=== PATIENT | female | born 1935 | race Caucasian/White ===

== ENCOUNTER 2018-05-11 10:46 | Day surgery (SDC) | payer OTHER ==
[2018-05-10 13:40] VITALS: BMI 30.8
[2018-05-11] MEDS ORDERED: ACETAMINOPHEN 1000 MG/100 ML VIAL (NON FORMULARY) IVPB ONE (12:02)
--- NOTE | 2018-05-11 12:02 | HP ---
History & Physical Update - History History: No Change - Physical Physical: No Change - Assessment Assessment: No Change - Plan Plan: No Change
[2018-05-11] MEDS ORDERED: IBUPROFEN 800 MG/8 ML IJ IVPB SCH (12:15)
[2018-05-11] MEDS ORDERED: DEXTROSE 5%-0.45% SALINE 1,000 ML IV SCH (12:15)
[2018-05-11] MEDS ORDERED: DEXAMETHASONE SOD PHOSPHATE 4 MG/1 ML VIAL ONE (12:16)
[2018-05-11] MEDS ORDERED: LIDOCAINE HCL/PF 2% SDV 5ML VIAL ONE (12:17)
[2018-05-11] MEDS ORDERED: PROPOFOL 20 ML ONE (12:17)
[2018-05-11] MEDS ORDERED: ceFAZolin SODIUM 1 GM VIAL ONE (12:19)
[2018-05-11] MEDS ORDERED: ONDANSETRON 4 MG/2 ML VIAL IVPUSH PRN (13:08)
[2018-05-11] MEDS ORDERED: oxyCODONE HCL 5 MG TABLET PO PRN (13:08)
[2018-05-11] MEDS ORDERED: LACTATED RINGERS SOLUTION 1,000 ML IV SCH (13:15)
[2018-05-11] MEDS ORDERED: ACETAMINOPHEN INJECTION 100 ML IVPB ONE (14:20)
[2018-05-11] MEDS ORDERED: oxyCODONE HCL 5 MG TABLET ONE (15:18)
[2018-05-11] MEDS ORDERED: oxyCODONE HCL 5 MG TABLET PO ONE (15:25)
[2018-05-11 17:10] VITALS: BP 129/69; PULSE 68; TEMP 98.6
--- NOTE | 2018-05-30 11:04 | OP ---
DATE OF OPERATION: 05/11/2018 PREOPERATIVE DIAGNOSIS: Right renal calculus. PROCEDURES: Cystoscopy, right ureteroscopy, laser lithotripsy, stent placement. ANESTHESIA: General. SURGEON: Roger Castro MD FINDINGS: A stone at the UPJ. PREOPERATIVE INDICATIONS: The patient is an 82-year-old female with recurrent kidney stone disease. She has an 11-mm stone in her right UPJ. OPERATION: The patient was brought to the OR, placed on the table in the supine position, given general anesthesia and IV antibiotics, placed in the modified lithotomy position. Groin was prepped and draped. Timeout was performed. Cystoscopy was performed. The right orifice was visualized. The wire was put up in the right kidney. A 10-Scottish triple-lumen catheter used to dilate the ureter. A second wire was placed and then a ureteroscope was placed into the ureter. The stone was visualized. It was seen at the UPJ. Using the holmium laser fiber, the stone was broken up into small pieces of sand. A stent was left in place. Bladder was emptied. The patient was woken up. ROGER CASTRO M.D. [id number]
== END 2018-05-11 16:50 | disposition home or self-care (01) ==
LOC: JASU-SURG 10:46
PROVIDERS: ATTEND Urology
PROC: 0TF38ZZ Fragmentation in Right Kidney Pelvis, Via Natural or Artificial Opening Endoscopic (ICD-10-PCS; principal; 2018-05-11 12:00)
PROC: 0T768DZ Dilation of Right Ureter with Intraluminal Device, Via Natural or Artificial Opening Endoscopic (ICD-10-PCS; 2018-05-11 12:00)
DX: N20.0 Calculus of kidney (principal)
CPT/HCPCS: 76000-TC-FY; 82962; 94760; J0131